=== PATIENT | female | born 1940 | race Caucasian/White ===

== ENCOUNTER 2022-10-04 21:52 | Inpatient (IN) | payer MEDICARE, OTHER ==
[~2022-10-04] VITALS: Ht 157.5 cm; Wt 74.0 kg
[~2022-10-04 21:52] MED LIST: ACET-868 PO; ASPI-1420 PO; BISA10SU11 RC; CITA10TA9 PO; CYAN500T64 PO; DOCU250C14 PO; FOLI1TAB16 PO; HYDR-4354 PO; LOPE2CAP PO; MAG30ORA PO; MAGN400O6 PO; MELA3TAB41 PO; MULT-659 PO; OXYC20TA42 PO; PANT40TA49 PO; PRAV20TA4 PO; PSYL1PAC8 PO
--- NOTE | 2022-10-04 22:00 | NUR ---
SALONI FROM [facility] FOR C/O SOB. TESTED + FOR COVID YESTERDAY, + HYPOTENSION AND TACHYCARDIA. PATIENT IS AAOX0. CAME WITH BP 81/45mmHg. PLACED COMFORTABLY IN BED. VITALS CHECKED.
[2022-10-04] MEDS ORDERED: IV NS 0.9% 1,000 ML BAG IV ONE (22:30)
[2022-10-04] MEDS ORDERED: PIPERACILLIN /TAZOBACTAM 3.375 G in IV D5W 50 ML IV ONE (22:30)
[2022-10-04] MEDS ORDERED: VANCOMYCIN 1 GM in IV D5W 250 ML IV ONE (22:30)
[2022-10-04] MEDS ORDERED: VANCOMYCIN 1 GM VIAL ONE (22:34)
[2022-10-04] MEDS ORDERED: PIPERACILLIN /TAZOBACTAM 3.375 G VIAL IV ONE (22:34)
--- NOTE | 2022-10-04 22:35 | NUR ---
ifc f16 inserted. no urine output
--- NOTE | 2022-10-04 22:35 | NUR ---
covid and influenza done and sent to lab
--- NOTE | 2022-10-04 22:37 | NUR ---
IV CANNULA G18 ON RIGHT AC. CANNOT DRAW BLOOD. 2ND IV CANNULA G22 ON LEFT FA.
--- NOTE | 2022-10-04 22:39 | NUR ---
SHOT PEEN OPERATOR AT BEDSIDE.
[2022-10-04 23:15] LABS: BASOPHILS % (AUTO) 0.1 % (0.0-2.0); HEMATOCRIT 45 % (33-45); HEMOGLOBIN 14.3 g/dL (11.5-14.8); LYMPHOCYTES # (AUTO) 0.7 K/uL (0.8-4.8); LYMPHOCYTES % (AUTO) 6.3 % (20.0-44.0); MEAN CORPUSCULAR HGB CONC 32 g/dl (31.0-36.0); MEAN CORPUSCULAR VOLUME 91 fL (82-100); MONOCYTES # (AUTO) 0.9 K/uL (0.1-1.30); MONOCYTES % (AUTO) 7.9 % (2.0-12.0); NEUTROPHILS # (AUTO) 10.1 K/uL (1.8-8.9); NEUTROPHILS % (AUTO) 85.7 % (43.0-81.0); PLATELET COUNT (AUTO) 246 K/uL (150-450); RED BLOOD CELL COUNT(AUTO) 4.93 MIL/uL (4.0-5.2); WHITE BLOOD COUNT (AUTO) 11.8 K/uL (4.3-11.0)
[2022-10-04 23:44] LABS: ALANINE AMINOTRANSFERASE 17 U/L (12-78); ALBUMIN 2.8 g/dL (3.4-5.0); ALKALINE PHOSPHATASE 93 U/L (46-116); ASPARTATE AMINOTRANSFERASE 22 U/L (15-37); BILIRUBIN,DIRECT 0.4 mg/dL (0.0-0.2); BILIRUBIN,TOTAL 0.8 mg/dL (0.2-1.0); CALCIUM, SERUM 8.5 mg/dL (8.5-10.1); CARBON DIOXIDE 16 mmol/L (21-32); CHLORIDE 109 mmol/L (98-107); CREATININE 2.1 mg/dL (0.6-1.3); GLUCOSE 217 mg/dL (74-106); POTASSIUM 3.3 mmol/L (3.5-5.1); SODIUM SERUM 144 mmol/L (136-145); TOTAL PROTEIN, SERUM 6.8 g/dL (6.4-8.2); UREA NITROGEN, BLOOD 39 mg/dL (7-18)
[2022-10-05] MEDS ORDERED: ACETAMINOPHEN 325 MG TABLET PO PRN (00:30)
[2022-10-05] MEDS ORDERED: MORPHINE SULFATE INJ 2 MG/ML DISP.SYRIN IV PRN (00:30)
[2022-10-05] MEDS ORDERED: ONDANSETRON HCL/PF 4 MG/2 ML VIAL IVP PRN (00:30)
[2022-10-05] MEDS ORDERED: DEXAMETHASONE SOD PHOSPHATE 10 MG/ML VIAL IV ONE (00:30)
[2022-10-05] MEDS ORDERED: ALBUTEROL FS 2.5 MG/0.5 ML VIAL.NEB NEB PRN (00:30)
[2022-10-05] MEDS ORDERED: Z GUARD REMEDY 4 OZ OINT TP PRN (00:30)
[2022-10-05] MEDS ORDERED: DEXTROSE 50%-WATER 50 ML DISP.SYRIN IV PRN (00:30)
[2022-10-05] MEDS ORDERED: INSULIN REGULAR, HUMAN 100 UNIT/ML 3 ML VIAL SQ PRN (00:30)
[2022-10-05] MEDS: IV NS 0.9% 1,000 ML IV SCH ×2 (00:36→12:36)
--- NOTE | 2022-10-05 00:52 | NUR ---
REPORT GIVEN TO NARAYAN SU
[2022-10-05] MEDS ORDERED: ACETAMINOPHEN 650 MG/SUPP.RECT RC PRN (01:00)
[2022-10-05] MEDS ORDERED: IV NS 0.9% 1,000 ML IV ONE (01:00)
[2022-10-05] MEDS ORDERED: ACETAMINOPHEN 650 MG/SUPP.RECT RC ONE (01:05)
[2022-10-05] MEDS ORDERED: IPRATROPIUM/ALBUTEROL INHALER IH SCH ×3 (01:30→12:34)
[2022-10-05] MEDS ORDERED: CEFEPIME 1 GM VIAL ONE (01:59)
[2022-10-05] MEDS ORDERED: CEFEPIME 2 GM in IV D5W 100 ML IV ONE (02:00)
--- NOTE | 2022-10-05 02:08 | NUR ---
TRANSFERRED TO 105 UNDER ACLS.
[2022-10-05 02:10] VITALS: BP 102/58
--- NOTE | 2022-10-05 02:18 | NUR ---
TRANSFERRED TO ROOM VIA ACLS TRANSPORT.
--- NOTE | 2022-10-05 02:30 | NUR ---
ANTHONY RN NOTE ADMITTED 82 YEARS OLD FEMALE PT FROM ER WITH THE DX OF [place] PNA BY DR LINDER. PT IS AWAKE, ONLY MUMBLES. A/O X 0. MINOR LABORED BREATHING NOTED. ON NRB MASK O2 15L. SKIN ASSESSMENT DONE. PICTURES TAKEN AND PLACE THEM IN THE CHART. WOUND CONSULT TRIGGERED. NO S/S OF PAIN NOTED. INCONTINENCE CARE GIVEN. BED BATH GIVEN. F/C INTACT AND PATENT DRAINING YELLOWISH COLOR URINE. NO FEVER AT THIS TIME. ALL NEEDS ATTENDED. SIDE RAILS UP X 3 AND CALL LIGHT WITHIN REACH. PT IN COVID ISOLATION. ISOLATION PRECAUTIONS TAKEN. VSS. Addendum: 10/05/22 at 0417 by SHARLENE CORTEZ RN PT IS CONGESTED. IVF NS INFUSING AT 80 ML/HR PLUS BOLUS 1L, KEPT HOB ELEVATED.
[2022-10-05] MEDS ORDERED: DEXAMETHASONE SOD PHOSPHATE 10 MG/ML VIAL ONE (03:50)
[2022-10-05 04:00] VITALS: BP 108/74
--- NOTE | 2022-10-05 04:14 | NUR ---
ANTHONY RN NOTE DR LINDER INFORMED LACTIC ACID IS 6.9 AND PT POLST IS DNR/DNI. GAVE NEW ORDER ORDER NOTED AND CARRIED OUT.
[2022-10-05] MEDS: BLOOD SUGAR DIAGNOSTIC 1 EACH STRIP IN SCH ×4 (07:57→22:09)
[2022-10-05 08:00] VITALS: BP 115/83
--- NOTE | 2022-10-05 08:25 | NUR ---
WOUND CARE CONSULT: REVIEWED CHART, NURSING DOCUMENTATION AND PHOTOS WHICH INDICATE REDNESS/INTACT DEEP TISSUE INJURIES TO HEELS AND SACRUM, PRESENT ON ADMISSION. RECOMMENDATIONS MADE FOR SKIN PROTECTION. DISCUSSED WITH NURSING STAFF. MD IN AGREEMENT WITH PLAN OF CARE.
[2022-10-05] MEDS ORDERED: NA P133E RC (08:26)
[2022-10-05] MEDS ORDERED: QUET25TA PO (08:26)
[2022-10-05] MEDS ORDERED: ACET-2605 PO (08:26)
[2022-10-05] MEDS ORDERED: LEVO330T PO (08:26)
[2022-10-05] MEDS ORDERED: FOLI0.4T6 PO (08:26)
[2022-10-05] MEDS ORDERED: CRAN425C6 PO (08:26)
[2022-10-05] MEDS ORDERED: ERGO500093 PO (08:26)
[2022-10-05] MEDS ORDERED: SERT25TA5 PO (08:26)
[2022-10-05] MEDS ORDERED: FAMO20TA8 PO (08:26)
[2022-10-05] MEDS: HEPARIN SODIUM, PORCINE 5000 UNITS/1 ML VIAL SQ SCH ×2 (08:57→22:07)
[2022-10-05] MEDS ORDERED: DEXAMETHASONE SOD PHOSPHATE 10 MG/ML VIAL IV SCH (09:00)
[2022-10-05] MEDS ORDERED: DEXAMETHASONE SOD PHOSPHATE 6 MG in IV D5W 50 ML IV SCH (09:00)
[2022-10-05 09:06] LABS: CALCIUM, SERUM 8.3 mg/dL (8.5-10.1); CARBON DIOXIDE 17 mmol/L (21-32); CHLORIDE 110 mmol/L (98-107); CREATININE 2.8 mg/dL (0.6-1.3); GLUCOSE 179 mg/dL (74-106); POTASSIUM 3.4 mmol/L (3.5-5.1); SODIUM SERUM 144 mmol/L (136-145); UREA NITROGEN, BLOOD 52 mg/dL (7-18)
--- NOTE | 2022-10-05 11:45 | NUR ---
RN NOTE PT SHOWING S/S OF DIFFICULTY BREATHING. RT NOTIFIED. MANAGER TELEMARKETING ORDERED STAT ABG. DNP HARPER AT BEDSIDE. PT VITALS ARE HR 141, BP 94/54, O2 SAT 86%, RR 32. ORDER FOR MIDLINE RECEIVED. NO FURTHER ORDER RECEIVED AT THIS TIME.
[2022-10-05 11:51] LABS: ABG BASE EXCESS -6.7 mmol/L; ABG PCO2 36.1 mmHg (35.0-45.0); ABG PH 7.327 (7.350-7.450); ABG PO2 72.8 mmHg (75.0-100.0); MetHb 0.6 % (0.0-1.5); O2Hb 94.6 % (94.0-97.0); SITE, ABG Right Brachial; VENT MODE, BG 15 L NRB
[2022-10-05 12:00] VITALS: BP 107/62
--- NOTE | 2022-10-05 12:04 | NUR ---
RN NOTE PT DNP HARPER, HOLD INSULIN UNLESS SUGAR REACH ABOVE 180 PT IS NPO
[2022-10-05] MEDS ORDERED: DOCUSATE SODIUM 250 MG CAPSULE PO PRN (12:30)
[2022-10-05] MEDS ORDERED: NA PHOS,M-B/NA PHOS,DI-BA 1 EA ENEMA RC PRN (12:30)
[2022-10-05] MEDS ORDERED: BISACODYL SUPP (10 MG) 10 MG/SUPP.RECT SUPP.RECT RC PRN (13:00)
[2022-10-05 16:00] VITALS: BP 107/62
[2022-10-05] MEDS ORDERED: REMDESIVIR (CHARGED) 200 MG, *LOADING DOSE 1 EA in IV NS 0.9% 210 ML IV ONE (16:00)
--- NOTE | 2022-10-05 17:40 | NUR ---
RN NOTE NO UO THROUGHOUT ENTIRE SHIFT. MCKENZIE CATH FLUSHED, RESISTANCE EXPERIENCED. FC REMOVED. BLADDER SCAN PERFORMED, MORE THAN 160ML SEEN, LOWER ABD DISTENDED, PT SHOWING SIGNS OF DISCOMFORT. ATTEMPTED TO PLACE NEW FC, UNABLE TO. CHARGE NURSE AND FELLOW RN ATTEMPTED WELL, BOTH 16F AND 14G ORDERED FROM [facility]. UNABLE TO PLACE FC, RESISTANCE FELT, UNABLE TO PLACE FC INTO THE BLADDER. CHARGE NURSE RN NOTIFIED. ANA MARIA HARPER NOTIFIED. BLADDER AND KIDNEY US ORDERED FROM [facility] ORDER. UROLOGY NOTIFIED. UROLOGY STATED THEY WILL COME SEE PT TODAY.
[2022-10-05] MEDS: IPRATROPIUM/ALBUTEROL INHALER IH SCH (18:00)
--- NOTE | 2022-10-05 18:41 | NUR ---
RN NOTE PT LETHARGIC, ONLY RESPONSIVE TO PAINFUL STIMULI AT THIS TIME. UNABLE TO GIVE PT INHALER.
[2022-10-05 20:00] VITALS: BP 135/69
[2022-10-05] MEDS ORDERED: QUETIAPINE FUMARATE 25 MG TABLET PO SCH (21:00)
--- NOTE | 2022-10-05 21:00 | NUR ---
RN NOTE DR. MONTILLA AT BEDSIDE. MCKENZIE CATHETER INSERTED. STERILE TECHNIQUE MAINTAINED. URINE IS CONCENTRATED YELLOW WITH SEDIMENTS.
--- NOTE | 2022-10-05 23:49 | NUR ---
RN NOTE DR. VINITA ABEL AWARE F PATIENT CONDITION. VS TEMP 99.8 AX, BP 72/37 HR 136, RR 40, ON 15L NRB. RECEIVED ORDERED ABG. NOTIFIED THAT PATIENT LLE IS MOTTLED, HANDS AND FEET ARE VERY COLD. ORDER RECEIVED FOR TOMI SCHMITT. Addendum: 10/06/22 at 0025 by HIMANSHU DUENAS RN ALSO ORDERED ABG
--- NOTE | 2022-10-05 23:53 | NUR ---
RN NOTE SQUEEGEER AND FORMER SPEAKING WITH CONSERVATOR ABOUT PATIENT CONDITION, WILL CALL BACK.
[2022-10-06] VITALS: BP 72/37
--- NOTE | 2022-10-06 00:22 | NUR ---
RN NOTE CONSERVATOR MARIA EUGENIA CALLED BACK AND STATED "NO ICU TRANSFER AND NO BLOOD PRESSER SUPPORT MEDICATIONS, JUST KEEP PATIENT COMFORTABLE." HOSPICE PATIENT CARE SECRETARY CONFIRMED WISHES WITH CONSERVATOR AT THE TIME OF THIS CALL. MARIA EUGENIA THE CONSERVATOR STATED SHE WAS TRYING TO CALL OTHER CONSERVATOR , HALEIGH, MULTIPLE TIMES BUT WAS UNABLE TO REACH, BUT MARIA EUGENIA IS THE CONSERVATOR ON THE POLST. DR. TALAMANTES MADE AWARE. ORDERED TO CANCEL ABG.
--- NOTE | 2022-10-06 01:09 | NUR ---
RN NOTE UNABLE TO ADMINISTER ALBUTEROL INHALER D/T LETHARGIC AND UNABLE TO FOLLOW DIRECTIONS.
[2022-10-06 04:00] VITALS: BP 97/34
[2022-10-06] MEDS: IPRATROPIUM/ALBUTEROL INHALER IH SCH ×2 (05:39)
--- NOTE | 2022-10-06 07:27 | NUR ---
RN NOTE PATIENT AT 0619. 2 RN WITNESS, MYSELF AND PLATE STRAIGHTENER SHARLENE GARCIA. DR. TALAMANTES MADE AWARE. RN SECOND MATE, KYMBERLY MADE AWARE, CONSERVATOR MARIA EUGENIA WAS INFORMED THAT PATIENT HAS , RECEIVED MORTUARY INFORMATION. PATIENT HAS ARRANGEMENTS WITH [facility] . [facility] WAS INFORMED #[id number], SPOKE WITH MARTHA Santiago. PATIENT IS NOT A CORNERS CASE.
[2022-10-06] MEDS ORDERED: CEFEPIME 2 GM in IV D5W 100 ML IV SCH (08:00)
--- NOTE | 2022-10-06 08:28 | NUR ---
postmortem care done. double bagged
[2022-10-06] MEDS ORDERED: FOLIC ACID 1 MG TABLET PO SCH (09:00)
[2022-10-06] MEDS ORDERED: SERTRALINE HCL 25 MG TABLET PO SCH (09:00)
[2022-10-06] MEDS ORDERED: LEVOCARNITINE 330 MG TABLET PO SCH (09:00)
[2022-10-06] MEDS ORDERED: VANCOMYCIN 1 GM in IV D5W 250ml IV SCH (10:00)
[2022-10-06] MEDS ORDERED: REMDESIVIR (CHARGED) 100 MG in IV NS 0.9% 100 ML IV SCH (16:00)
[2022-10-10] MEDS ORDERED: ERGOCALCIFEROL (VITAMIN D 2) 50,000 UNIT CAPSULE PO SCH (09:00)
== END 2022-10-06 08:20 | DRG 871 ==
LOC: ER 21:55 → MEDSG1 10-05 00:28 → TELE-TD 10-05 01:50
PROVIDERS: ADMIT Nurse Practitioner Acute Care; ATTEND Nurse Practitioner Acute Care
PROC: XW033E5 Introduction of Remdesivir Anti-infective into Peripheral Vein, Percutaneous Approach, New Technology Group 5 (ICD-10-PCS; principal; 2022-10-05)
DX: A41.89 Other specified sepsis (principal); G92.8 Other toxic encephalopathy; I21.4 Non-ST elevation (NSTEMI) myocardial infarction; U07.1 COVID-19; N17.0 Acute kidney failure with tubular necrosis; J96.01 Acute respiratory failure with hypoxia; J12.82 Pneumonia due to coronavirus disease 2019; D68.59 Other primary thrombophilia; E87.20 Acidosis, unspecified; Z66 Do not resuscitate; Z51.5 Encounter for palliative care; E86.0 Dehydration; F03.90 Unspecified dementia, unspecified severity, without behavioral disturbance, psychotic disturbance, mood disturbance, and anxiety; F29 Unspecified psychosis not due to a substance or known physiological condition; E78.5 Hyperlipidemia, unspecified; F32.A Depression, unspecified; Z79.899 Other long term (current) drug therapy; Z74.09 Other reduced mobility; I12.9 Hypertensive chronic kidney disease with stage 1 through stage 4 chronic kidney disease, or unspecified chronic kidney disease; N18.9 Chronic kidney disease, unspecified; E87.6 Hypokalemia; R73.9 Hyperglycemia, unspecified
CPT/HCPCS: 36415; 36600; 71045-TC; 76770-TC; 76856-TC; 80048-TC; 80076-TC; 80202-TC; 82728-TC; 82962-TC; 83605-TC; 84484-TC; 85025-TC; 85378-TC; 85730-TC; 86140-TC; 87040-TC; 87081-TC; 93307-TC; 94799-TC; A4216; C9803; G0378; J0692; J1100; J1644; J1815; J2543; J3370; J7030; J7050; J7060